=== PATIENT | female | born 1950 | race Caucasian/White ===

== ENCOUNTER → 2016-07-05 | Outpatient (CLI) | payer MEDICARE, OTHER | LOC: SP 10:43 | PROVIDERS: ATTEND Physician Assistant | DX: R42 Dizziness and giddiness (principal) | CPT/HCPCS: 93880 ==

== ENCOUNTER 2016-10-07 16:02 | Emergency (ER) | payer MEDICARE, OTHER ==
--- NOTE | 2016-10-07 16:54 | ER Document Report ---
ED Neck/Back Problem - General Chief Complaint: Hip Pain Stated Complaint: HIP PAIN Time seen by provider: 16:49 Mode of Arrival: Medic Information source: Patient Notes: 66-year-old female presents to ED for left "hip "pain. There is no hip pain but she does have tenderness to the left sacral area. Pain with range of motion of the left leg to the left sacral. She has a history of long chronic pain that she gets hydrocortisone from her doctor in [place]. She is also scheduled to get a cortisone shot on Tuesday for her chronic pain. TRAVEL OUTSIDE OF THE [place] IN LAST 30 DAYS: No - HPI Patient complains to provider of: Lower back Onset: Other - 2 days Where: Home Onset: Chronic Timing: Still present Quality of pain: Achy, Sharp Severity: Severe Pain Level: 5 Context: Other - No new injury Recent injury: No Associated symptoms: Radiation to leg, Lower back pain. denies: Constipation, Incontinence, Motor loss, Numbness/tingling, Sensory loss, Unable to urinate Exacerbated by: Movement of trunk, Sitting position Relieved by: Nothing Similar symptoms previously: Yes Recently seen / treated by doctor: Yes - Related Data Allergies/Adverse Reactions: estrogens, conjugated [From Premarin] Allergy (Severe, Verified 08/12/15 10:45) hives, throat closing gemfibrozil [From Lopid] Allergy (Severe, Verified 08/12/15 10:45) HIVES THROAT CLOSES iodine [Iodine] Allergy (Severe, Verified 08/12/15 10:45) HIVES, THROAT CLOSES naproxen sodium [From Anaprox] Allergy (Severe, Verified 08/12/15 10:45) HIVES, THROAT CLOSES niacin [From Niaspan] Allergy (Severe, Verified 08/12/15 10:45) HIVES, THROAT CLOSES povidone-iodine [From Betadine] Allergy (Severe, Verified 08/12/15 10:45) HIVES THROAT CLOSES red dye [Red Dye] Allergy (Severe, Verified 08/12/15 10:45) HIVES, THROAT CLOSES rosuvastatin calcium [From Crestor] Allergy (Severe, Verified 08/12/15 10:45) HIVES, THROAT CLOSES Soap [From Betadine] Allergy (Severe, Verified 08/12/15 10:45) HIVES THROAT CLOSES Sulfa (Sulfonamide Antibiotics) Allergy (Severe, Verified 08/12/15 10:45) HIVES THROAT CLOSES neutro pad Allergy (Uncoded 08/12/15 10:45) rash Past Medical History - General Information source: Patient - Social History Smoking Status: Current Every Day Smoker Cigarette use (# per day): Yes - pack per day Chew tobacco use (# tins/day): No Smoking Education Provided: Yes - less than 1 Frequency of alcohol use: None Drug Abuse: None Lives with: Family Family History: Arthritis, CAD, DM, Hyperlipidemia, Hypertension, Malignancy, Thyroid Disfunction Patient has suicidal ideation: No Patient has homicidal ideation: No - Past Medical History Cardiac Medical History: Reports: Hx Hypercholesterolemia, Hx Hypertension - on meds Pulmonary Medical History: Reports: Hx Bronchitis, Hx COPD EENT Medical History: Reports: None Neurological Medical History: Reports: None Endocrine Medical History: Reports: None Renal/ Medical History: Reports: None Malignancy Medical History: Reports: None GI Medical History: Reports: Hx Hiatal Hernia - 2 repairs, 2012 Musculoskeltal Medical History: Reports Hx Arthritis, Reports Hx Musculoskeletal Deformity, Reports Hx Musculoskeletal Trauma Skin Medical History: Reports None Psychiatric Medical History: Reports: None Traumatic Medical History: Reports: None Infectious Medical History: Reports: None Past Surgical History: Reports: Hx Abdominal Surgery - hiatal hernia, abdominal hernia, rectorectal cyst, Hx Appendectomy, Hx Cholecystectomy, Hx Gynecologic Surgery - bladder tact, Hx Hysterectomy, Hx Neurologic Surgery - Previous back surgery cauterization of the nerves in the back, Hx Orthopedic Surgery - left rotator cuff patient states she had her "tailbone" removed, Hx Tonsillectomy - & adenoids, Hx Tubal Ligation, Hx Urinary Tract Surgery, Hx Vascular Surgery - Vein stripping bilateral, Other - Cataract surgery - Immunizations Hx Diphtheria, Pertussis, Tetanus Vaccination: Yes - 2013 Hx Pneumococcal Vaccination: 06/06/13 Review of Systems - Review of Systems Constitutional: No symptoms reported EENT: No symptoms reported Cardiovascular: No symptoms reported Respiratory: No symptoms reported Gastrointestinal: No symptoms reported Genitourinary: No symptoms reported Female Genitourinary: No symptoms reported Musculoskeletal: Back pain, Muscle pain Skin: No symptoms reported Hematologic/Lymphatic: No symptoms reported Neurological/Psychological: No symptoms reported -: Yes All other systems reviewed and negative Physical Exam - Vital signs Vitals: Temp Pulse Resp BP Pulse Ox 97.6 F 82 18 119/61 95 10/07/16 16:22 10/07/16 16:22 10/07/16 16:22 10/07/16 16:22 10/07/16 16:22 Interpretation: Normal - General General appearance: Appears well, Alert - HEENT Head: Normocephalic, Atraumatic Eyes: Normal Pupils: PERRL - Respiratory Respiratory status: No respiratory distress Chest status: Nontender Breath sounds: Normal Chest palpation: Normal - Cardiovascular Rhythm: Regular Heart sounds: Normal auscultation Murmur: No - Abdominal Inspection: Normal Distension: No distension Bowel sounds: Normal Tenderness: Nontender Organomegaly: No organomegaly - Back Back: Normal, Tender - Paraspinous muscles, Scars - Previous back surgery. No: Deformity/step-off, CVA tenderness, Vertebra tenderness, Scoliosis, Wounds - Extremities General upper extremity: Normal inspection, Nontender, Normal color, Normal ROM , Normal temperature General lower extremity: Normal inspection, Nontender, Normal color, Normal ROM , Normal temperature, Normal weight bearing. No: Kenia's sign - Neurological Neuro grossly intact: Yes Cognition: Normal Orientation: AAOx4 [place] Coma Scale Eye Opening: Spontaneous [place] Coma Scale Verbal: Oriented [place] Coma Scale Motor: Obeys Commands [place] Coma Scale Total: 15 Speech: Normal Motor strength normal: LUE, RUE, LLE, RLE Sensory: Normal - Psychological Associated symptoms: Normal affect, Normal mood - Skin Skin Temperature: Warm Skin Moisture: Dry Skin Color: Normal Course - Vital Signs Vital signs: Temp Pulse Resp BP Pulse Ox 98.1 F 85 20 119/68 96 10/07/16 19:00 10/07/16 19:00 10/07/16 19:00 10/07/16 19:00 10/07/16 19:00 - Diagnostic Test Radiology reviewed: Image reviewed, Reports reviewed Discharge - Discharge Clinical Impression: Chronic low back pain with left-sided sciatica Qualifiers: Back pain laterality: bilateral Qualified Code(s): M54.42 - Lumbago with sciatica, left side Condition: Stable Disposition: HOME, SELF-CARE Additional Instructions: Chronic Back Pain Chronic back pain (pain persisting longer than three months) is a common problem. A medical evaluation can look for herniated disc, arthritis, osteoporosis, tumors, and infections. But at least half the time, there's no obvious treatable cause. Anxiety and depression tend to worsen back pain. Ibuprofen or other anti-inflammatory medicine can help. A heating pad, used for 15-20 minutes at a time, can ease pain. For this type of back pain, narcotic medicines should be avoided. Muscle relaxers are rarely helpful unless you're having spasms. Activity is important. Find an aerobic exercise program that your back can tolerate. Too much rest makes back pain worse. Specific back exercises are usually prescribed to strengthen the back and abdominal muscles. Often, a physical therapist can help. Avoid heavy lifting, working while bent over, or standing with both knees straight. Most back pain patients do better with a firm mattress. If new symptoms of a "herniated disc" (radiation of pain, numbness, or tingling down the back of the leg or weakness in the leg) occur, you should be re-examined. Chronic Pain Control Stress, inactivity, and depression make pain more severe regardless of the cause of the pain. Stress and poor physical condition can cause pain such as headaches and backache. Relaxation: Rest in a quiet place with your eyes closed for 20 minutes twice daily. Concentrate on a pleasant image, or simply "feel" your breathing. Clear your mind. Stress management: Deal with your "stressors." Either take action, or eliminate the stressor from your life. Don't let things hang over you. Accept those things you can't change. Nutrition: Eat small, balanced meals -- don't skip, don't overeat. Meals should be high-carbohydrate, low-sugar, low-fat. Exercise: Exercise helps painful conditions and eases stress. Get 30 minutes of moderate exercise, five days a week. Do an activity that does not flare your pain. Precautions: Pain which continues to disrupt daily activities, or which changes in nature, requires a medical evaluation. Pain Clinic referral is available. We do not manage chronic pain in the Emergency Department. We will try to appropriately help you through an acute flare of your chronic painful condition , but for on-going chronic pain that does not improve, you will need to see your private doctor or automobile painter. We do not provide repeated medication management of chronic painful conditions. If you wish, we can provide the name of local pain management physicians. ORAL NARCOTIC MEDICATION: You have been given a [place] for pain control. This medication is a narcotic. It's best taken with food, as nausea can result if taken on an empty stomach. Don't operate machinery or drive within six hours of taking this medication. Do not combine this medicine with alcohol, or with any medication which can cause sedation (such as cold tablets or sleeping pills) unless you get permission from the physician. Narcotics tend to cause constipation. If possible, drink plenty of fluids and eat a diet high in fiber and fruits. Please be aware that prescription narcotics also have the potential for abuse. People become addicted to these medications because of the general sense of wellbeing that they induce. This feeling along with a significant reduction in tension, anxiety, and aggression provides a stimulating seductive quality to these drugs. Once your pain is under control, we encourage you to discard your unused narcotics. MUSCLE RELAXERS: You were given a Flexeril while in the emergency room for muscle spasms with your back pain. As you on chronic pain management I cannot send her home with a prescription. Muscle relaxing medications are usually prescribed for acute muscle spasm or injury to the neck and back. They are often combined with antiinflammatory pain medication for increased relief. You may stop the muscle relaxer when the pain and stiffness have improved. Start the medication again if spasms recur. Muscle relaxers may cause drowsiness, especially with the first dose. Do not operate machinery or drive while under the effects of the medication. Most muscle relaxers last up to 24 hours. Do not combine the medication with alcohol. ICE PACKS: Apply ice packs frequently against the painful area. Many different schedules are recommended, such as "20 minutes on, 20 minutes off" or "one hour ice, two hours rest." If you need to work, you may need to go longer between ice treatments. You should plan to have the area ice packed AT LEAST one fourth of the time. The ice should be applied over the wrap, tape, or splint, or over a layer of cloth -- not directly against the skin. Some ice bags have a built-in cloth and can be put directly on the skin. WARM PACKS: After approximately two days, apply gentle heat (such as a heating pad or hot water bottle) for about 20 to 30 minutes about every two hours -- at least four times daily. Warmth and elevation will help you make a more rapid recovery , and will ease the pain considerably. Do not use HOT heat, and never apply heat for longer than 30 minutes. The continuous heat can invisibly damage skin and muscles -- even when no burn is seen on the surface. Damaged muscles can make you MORE sore. FOLLOW-UP CARE: If you have been referred to a physician for follow-up care, call the physician s office for an appointment as you were instructed or within the next two days. If you experience worsening or a significant change in your symptoms, notify the physician immediately or return to the Emergency Department at any time for re-evaluation. Please call your pain management physician and let them know that your pain has increased you have not had a new injury and try to schedule a follow-up appointment. Forms: Smoking Cessation Education Referrals: RAMON MCCAIN PA-C [Primary Care Provider] - Follow up as needed
[2016-10-07] MEDS ORDERED: HYDROCODONE/ACETAMINOPHEN 5-325 MG TABLET PO ONE (18:09)
[2016-10-07] MEDS ORDERED: CYCLOBENZAPRINE HCL 10 MG TABLET PO ONE (18:09)
[2016-10-07 19:03] VITALS: BP 119/68
== END 2016-10-07 19:06 | disposition home or self-care (01) ==
LOC: ER 16:02
DX: M54.42 Lumbago with sciatica, left side (principal); G89.29 Other chronic pain; M25.552 Pain in left hip; F17.210 Nicotine dependence, cigarettes, uncomplicated; E78.00 Pure hypercholesterolemia, unspecified; I10 Essential (primary) hypertension; J44.9 Chronic obstructive pulmonary disease, unspecified; Z88.2 Allergy status to sulfonamides; Z88.9 Allergy status to unspecified drugs, medicaments and biological substances; Z90.49 Acquired absence of other specified parts of digestive tract
CPT/HCPCS: 99283; 72110; A9270 ×2

== ENCOUNTER → 2016-11-15 | Outpatient (CLI) | payer MEDICARE, OTHER ==
--- NOTE | 2016-11-15 19:15 | XCELERA REPORT ---
[address] [address] Lower Extremity Venous Evaluation Name: RUSTY IRVIN Age: 66 yrs Gender: Female : 1950 Patient Status: Outpatient Patient Location: Study Date: 11/15/2016 01:01 PM Procedure: Color flow and duplex imaging bilaterally of the veins of the lower extremities as well as the Common Femoral veins. Reason For Study: EDEMA Ordering Physician: RAMON MCCAIN PA-C Performed By: Lynnette Edge Right Sided Venous Evaluation Normal vessel filling wall to wall, compression and augmentation as well as Colour flow down to the infrageniculate veins. Left Sided Venous Evaluation Normal vessel filling wall to wall, compression and augmentation as well as Colour flow down to the infrageniculate veins. Interpretation Summary No duplex evidence of DVT or obstruction in the bilateral lower extremities. : RAMON MCCAIN PA-C > Obi Darden
== END ==
LOC: SP 12:51
PROVIDERS: ATTEND Physician Assistant
DX: R60.0 Localized edema (principal)
CPT/HCPCS: 93970

== ENCOUNTER 2016-11-25 08:20 | Day surgery (SDC) | payer MEDICARE, OTHER ==
[2016-11-25] MEDS ORDERED: ONDANSETRON HCL INJ/PF 4 MG/2 ML SDV ONE (09:52)
[2016-11-25] MEDS ORDERED: NALOXONE HCL INJ/PF 0.4 MG/1 ML SDV ONE ×2 (09:52)
[2016-11-25] MEDS ORDERED: FENTANYL CITRATE INJ/PF 100 MCG/2 ML AMPUL ONE (09:54)
[2016-11-25] MEDS ORDERED: FLUMAZENIL INJ 0.5 MG/5 ML VIAL IV ONE (09:54)
[2016-11-25] MEDS ORDERED: EPINEPHRINE INJ 1 MG/10 ML DISP.SYRIN ONE (09:55)
[2016-11-25] MEDS ORDERED: GLUCAGON,HUMAN RECOMB 1 MG INJ ONE (09:55)
[2016-11-25] MEDS: MIDAZOLAM 2 MG/2 ML INJ ONE ×2 (10:20→10:24)
[2016-11-25] MEDS: FENTANYL CITRATE INJ/PF 100 MCG/2 ML AMPUL ONE ×2 (10:22→10:27)
--- NOTE | 2016-11-25 10:47 | Operative Report ---
Operative Report DATE OF SURGERY: 11/25/16 PREOPERATIVE DIAGNOSIS: 1. History of GERD. 2. History of [place] esophagus. 3. History of Cheikh fundoplication and revision POSTOPERATIVE DIAGNOSIS: 1. Distal esophagitis. 2. Diffuse gastritis OPERATION: 1. Esophagogastroduodenoscopy. 2. Distal esophageal biopsy 2. 3. Antral biopsy SURGEON: ESTHER SAHU ANESTHESIA: Moderate Sedation TISSUE REMOVED OR ALTERED: Physical biopsy COMPLICATIONS: none ESTIMATED BLOOD LOSS: scant INTRAOPERATIVE FINDINGS: see below PROCEDURE: Taken to the endoscopy suite where IV sedation was induced. She was placed in the left lateral decubitus position. Surgical timeout was conducted. Appropriate level sedation was achieved The flexible adult upper endoscope was advanced through the oropharynx down the esophagus to the stomach into the duodenum. This was well tolerated by the patient. The duodenum was essentially normal. Scope was brought back to the pylorus which was normal without evidence of peptic ulcer disease. The stomach was of normal caliber. There was no evidence of retained gastric contents. There was diffuse moderate severe gastritis without ulceration. Biopsies of the distal antrum was obtained. The scope was retroflexed stomach and a good look at the Cheikh fundoplication was appreciated. The wrap appeared to be intact and was photographed. Scope was brought back to the GE junction. The was approximately 37 cm from the incisor. There was evidence of mucosal irregularity on the esophageal side and 2 biopsies were obtained photographs were obtained and submitted. There was no evidence of stricture or bleeding or erosions. The rest of the esophagus was unremarkable. The scope was withdrawn to the patient's oropharynx. She tolerated procedure well
--- NOTE | 2016-11-25 10:49 | PDOC DISCHARGE SUMMARY ---
Discharge Summary (SDC) - Discharge Final Diagnosis: 1. Distal esophagitis 2. Diffuse gastris 3. S/P Cheikh Fundoplication Date of Surgery: 11/25/16 Discharge Date: 11/25/16 Condition: Good Treatment or Instructions: [facility] [address] [address] POST ENDOSCOPY DISCHARGE INSTRUCTIONS 1. Diet: Start clear liquids that a regular diet as tolerated. 2. Resume all preoperative medications. All oral anticoagulants and aspirins can be resumed 24 hours after procedure. 3. If a polypectomy was performed some bleeding per rectum may occur. This should stop within 3 days. If not, please contact the office. 4. If you had a colonoscopy you may experience some bloating and delayed return of normal bowel function for several days, your regular bowel movement pattern should resume within a week. 5. Please contact [facility] at to make an appointment with Dr. Ford for 1 to 3 weeks following procedure. 6. If you have any questions or concerns regarding your care,treatment plan or follow up, please contact our office. Discharge Diet: As Tolerated Discharge Activity: Activity As Tolerated Home Care Assistance: None Needed Report the Following to Your Physician Immediately: Shortness of Breath, Increase in Pain, Fever over 101 Degrees
[2016-11-25 11:59] VITALS: BP 117/53
== END 2016-11-25 12:02 | disposition home or self-care (01) ==
LOC: END 08:20
PROVIDERS: ATTEND Surgery
PROC: 0DB38ZX Excision of Lower Esophagus, Via Natural or Artificial Opening Endoscopic, Diagnostic (ICD-10-PCS; 2016-11-25)
PROC: 0DB68ZX Excision of Stomach, Via Natural or Artificial Opening Endoscopic, Diagnostic (ICD-10-PCS; principal; 2016-11-25 09:00)
DX: K21.0 Gastro-esophageal reflux disease with esophagitis (principal); K29.70 Gastritis, unspecified, without bleeding; Z87.19 Personal history of other diseases of the digestive system; E78.00 Pure hypercholesterolemia, unspecified; I10 Essential (primary) hypertension; F17.210 Nicotine dependence, cigarettes, uncomplicated; F41.9 Anxiety disorder, unspecified; Z79.899 Other long term (current) drug therapy; Z88.2 Allergy status to sulfonamides; Z88.6 Allergy status to analgesic agent; Z88.8 Allergy status to other drugs, medicaments and biological substances; Z87.440 Personal history of urinary (tract) infections
CPT/HCPCS: 43239; 88342 ×2; 88305 ×2; 88313 ×2; J2250; J3010; J0171; J1610; J2310; J2405; J3490

== ENCOUNTER 2018-02-15 13:52 | Emergency (ER) | payer MEDICARE ==
[2018-02-15] MEDS ORDERED: MORPHINE SULFATE 10 MG/ML INJ IV ONE (15:02)
[2018-02-15] MEDS ORDERED: ONDANSETRON HCL INJ/PF 4 MG/2 ML SDV IV ONE (15:02)
--- NOTE | 2018-02-15 15:21 | ER Document Report ---
ED Medical Screen (RME) - General Chief Complaint: Leg Pain Stated Complaint: LEG PAIN Time Seen by Provider: 02/15/18 14:44 Mode of Arrival: Wheelchair Information source: Patient Notes: Patient is complaining of right lower extremity pain of sudden onset. She denies any injury or fall. I have greeted and performed a rapid initial assessment of this patient. A comprehensive ED assessment and evaluation of the patient, analysis of test results and completion of the medical decision making process will be conducted by additional ED providers. TRAVEL OUTSIDE OF THE [place] IN LAST 30 DAYS: No - Related Data Allergies/Adverse Reactions: estrogens, conjugated [From Premarin] Allergy (Severe, Verified 02/15/18 14:02) hives, throat closing gemfibrozil [From Lopid] Allergy (Severe, Verified 02/15/18 14:02) HIVES THROAT CLOSES iodine [Iodine] Allergy (Severe, Verified 02/15/18 14:02) HIVES, THROAT CLOSES naproxen sodium [From Anaprox] Allergy (Severe, Verified 02/15/18 14:02) HIVES, THROAT CLOSES niacin [From Niaspan] Allergy (Severe, Verified 02/15/18 14:02) HIVES, THROAT CLOSES povidone-iodine [From Betadine] Allergy (Severe, Verified 02/15/18 14:02) HIVES THROAT CLOSES red dye [Red Dye] Allergy (Severe, Verified 02/15/18 14:02) HIVES, THROAT CLOSES rosuvastatin calcium [From Crestor] Allergy (Severe, Verified 02/15/18 14:02) HIVES, THROAT CLOSES Soap [From Betadine] Allergy (Severe, Verified 02/15/18 14:02) HIVES THROAT CLOSES Sulfa (Sulfonamide Antibiotics) Allergy (Severe, Verified 02/15/18 14:02) HIVES THROAT CLOSES neutro pad Allergy (Uncoded 02/15/18 14:02) rash Past Medical History - Past Medical History Cardiac Medical History: Reports: Hx Hypercholesterolemia, Hx Hypertension Denies: Hx Coronary Artery Disease, Hx Heart Attack Pulmonary Medical History: Reports: Hx COPD - TAKES BREATHING TREATMENTS Denies: Hx Asthma, Hx Bronchitis, Hx Pneumonia Neurological Medical History: Denies: Hx Cerebrovascular Accident, Hx Seizures Renal/ Medical History: Denies: Hx Peritoneal Dialysis GI Medical History: Reports: Hx Hiatal Hernia - 2 repairs, 2012 Musculoskeltal Medical History: Reports Hx Arthritis, Reports Hx Musculoskeletal Deformity, Reports Hx Musculoskeletal Trauma Past Surgical History: Reports: Hx Abdominal Surgery, Hx Appendectomy, Hx Cholecystectomy, Hx Gynecologic Surgery - bladder tact, Hx Hysterectomy, Hx Neurologic Surgery - Previous back surgery cauterization of the nerves in the back, Hx Orthopedic Surgery - ltkr, Lshoulder, back, Hx Rectal Surgery - cyst removal, Hx Tonsillectomy, Hx Tubal Ligation, Hx Urinary Tract Surgery, Hx Vascular Surgery - Vein stripping bilateral, Other - Cataract surgery - Immunizations Hx Diphtheria, Pertussis, Tetanus Vaccination: Yes - 2013 Physical Exam - Vital signs Vitals: Temp Pulse Resp BP Pulse Ox 97.4 F 99 18 133/73 H 94 02/15/18 14:18 02/15/18 14:18 02/15/18 14:18 02/15/18 14:18 02/15/18 14:18 Course - Vital Signs Vital signs: Temp Pulse Resp BP Pulse Ox 97.4 F 99 18 133/73 H 94 02/15/18 14:18 02/15/18 14:18 02/15/18 14:18 02/15/18 14:18 02/15/18 14:18 Doctor's Discharge - Discharge Referrals: RAMON MCCAIN PA-C [Primary Care Provider] - Follow up as needed
--- NOTE | 2018-02-15 16:09 | RADIOLOGY REPORT (SQ) ---
EXAM DESCRIPTION: VENOUS UNILATERAL LOWER COMPLETED DATE/TIME: 02/15/2018 4:02 pm REASON FOR STUDY: Right Leg pain COMPARISON: None. TECHNIQUE: Dynamic and static mckeon scale and color images acquired of the right leg venous system. S elected spectral images acquired with additional compression and augmentation maneuvers. The contrala teral common femoral vein and saphenofemoral junction were also imaged. Images stored on PACS. LIMITATIONS: None. FINDINGS: COMMON FEMORAL: Normal phasicity, compression and augmentation. No visualized echogenic ma terial on mckeon scale. No defects on color images. FEMORAL: Normal compression and augmentation. No visualized echogenic material on mckeon scale. No defe cts on color images. POPLITEAL: Normal compression, augmentation. No visualized echogenic material on mckeon scale. No defec ts on color images. CALF VESSELS: Normal compression, augmentation. No visualized echogenic material on mckeon scale. No de fects on color images. GSV and SSV: Normal compression, augmentation. No visualized echogenic material on mckeon scale. No def ects on color images. ANY DEEP VENOUS INSUFFICIENCY: Not evaluated. ANY EVIDENCE OF POPLITEAL CYST: No. OTHER: No other significant finding. CONTRALATERAL COMMON FEMORAL VEIN AND SAPHENOFEMORAL JUNCTION: Normal phasicity, compression and augmentation. No visualized echogenic material on mckeon scale. No de fects on color images. IMPRESSION: NO EVIDENCE DVT OR SVT IN THE RIGHT LEG. TECHNICAL DOCUMENTATION: JOB ID: [id number] [employer]- All Rights Reserved Reading location - IP/workstation name: [email or web address]
[2018-02-15] MEDS ORDERED: LIDOCAINE 5% (700 MG) TRANSDERMAL ADH..PATCH TP ONE (16:46)
--- NOTE | 2018-02-15 16:54 | ER Document Report ---
HPI - HPI Pain Level: 4 Notes: Patient is a 67-year-old female with a rate of hypertension, DKA on the right side, femur fracture on the right, tobacco abuse who presents to the ED complaining of right anterior tibial pain that began about 4 days ago with no known precipitating event or injury. Patient states that she is still able to ambulate. Patient states that the soreness has been increasing at times to that right leg. Patient states that she has been wearing her compression stockings without any changes noted in her amount of swelling. She has not noticed any redness or bruising. She is eating and drinking without difficulties. She is urinating normally and having normal bowel movements. + smoker. Denies prolonged immobilization/travel, recent surgery/trauma, CA hx, hormone use, prev dvt/pe. Denies any PARRISH, fever, neck stiffness, URI, CP, syncope, HERNANDEZ, cough, wheeze, SOB, abd pain, n/v/d, dysuria, hematuria, back pain , loss of control of b/b, urinary retention, saddle anesthesia, paralysis/ weakness, or rash. - ROS Systems Reviewed and Negative: Yes All other systems reviewed and negative - REPRODUCTIVE Reproductive: DENIES: : - DERM Skin Color: Normal, [place] Past Medical History - General Information source: Patient - Social History Smoking Status: Current Every Day Smoker Family History: Arthritis, CAD, DM, Hyperlipidemia, Hypertension, Malignancy, Thyroid Disfunction Patient has suicidal ideation: No Patient has homicidal ideation: No - Past Medical History Cardiac Medical History: Reports: Hx Hypercholesterolemia, Hx Hypertension Denies: Hx Coronary Artery Disease, Hx Heart Attack Pulmonary Medical History: Reports: Hx COPD - TAKES BREATHING TREATMENTS Denies: Hx Asthma, Hx Bronchitis, Hx Pneumonia Neurological Medical History: Denies: Hx Cerebrovascular Accident, Hx Seizures Renal/ Medical History: Denies: Hx Peritoneal Dialysis GI Medical History: Reports: Hx Hiatal Hernia - 2 repairs, 2012 Musculoskeletal Medical History: Reports Hx Arthritis, Reports Hx Musculoskeletal Deformity, Reports Hx Musculoskeletal Trauma Past Surgical History: Reports: Hx Abdominal Surgery, Hx Appendectomy, Hx Cholecystectomy, Hx Gynecologic Surgery - bladder tact, Hx Hysterectomy, Hx Neurologic Surgery - Previous back surgery cauterization of the nerves in the back, Hx Orthopedic Surgery - ltkr, Lshoulder, back, Hx Rectal Surgery - cyst removal, Hx Tonsillectomy, Hx Tubal Ligation, Hx Urinary Tract Surgery, Hx Vascular Surgery - Vein stripping bilateral, Other - Cataract surgery - Immunizations Hx Diphtheria, Pertussis, Tetanus Vaccination: Yes - 2013 Hx Pneumococcal Vaccination: 06/06/13 Vertical Provider Document - CONSTITUTIONAL Agree With Documented VS: Yes Notes: PHYSICAL EXAMINATION: GENERAL: Well-appearing, well-nourished and in no acute distress. LUNGS: Breath sounds clear to auscultation bilaterally and equal. No wheezes rales or rhonchi. HEART: Regular rate and rhythm without murmurs, rubs, gallops. Musculoskeletal: Rt leg/knee: No obvious warmth, swelling, ecchymosis, effusion , or deformity. FROM to passive/active and flexion >90 w/o difficulty or tenderness. Strength 5+/5. N/V intact distal. Patellar grind negative. No calf tenderness. + point tenderness to the anterior tibia near the prox 1/3 area. Compartments are soft. no foot drop. Extremities: No cyanosis, clubbing, or edema b/l. Peripheral pulses 2+. Capillary refill less than 3 seconds. [place] neg b/l. NEUROLOGICAL: Normal speech, limping gait. Normal sensory, motor exams PSYCH: Normal mood, normal affect. SKIN: Warm, Dry, normal turgor, no rashes or lesions noted. - INFECTION CONTROL TRAVEL OUTSIDE OF THE [place] IN LAST 30 DAYS: No Course - Re-evaluation Re-evalutation: 02/15/18 17:36 Patient is an afebrile, well-hydrated, 67-year-old female who presents to the ED with anterior tibial leg pain, unspecified. Vitals are acceptable without any significant tachycardia, tachypnea, or hypoxia. PE is otherwise unremarkable for any neurovascular compromise, obvious tendon/ligament rupture, obvious fracture/dislocation, septic joint, compartment syndrome, DVT. Venous Doppler was unremarkable for any acute pathology including x-ray. Patient is able to weight-bear and ambulate even though she has a limp. No further labs or imaging warranted at this time based on H&P. Patient is nontoxic-appearing and is tolerating p.o. without any difficulties. I will send her home with a prescription for Lidoderm patch and Voltaren gel. Recheck with your PCM in 3-5 days. Consider consult orthopedics. Return to the ED with any worsening/ concerning symptoms otherwise as reviewed in discharge. Patient is in agreement. Patient states that she can take ibuprofen, Motrin, and Aleve without any allergic symptoms. - Vital Signs Vital signs: Temp Pulse Resp BP Pulse Ox 97.4 F 99 18 133/73 H 94 02/15/18 14:18 02/15/18 14:18 02/15/18 14:18 02/15/18 14:18 02/15/18 14:18 Discharge - Discharge Clinical Impression: Right leg pain Condition: Stable Disposition: HOME, SELF-CARE Instructions: Leg Pain Nonspecific ([facility]) Additional Instructions: Rest, Ice, Compression, Elevation Tylenol/ibuprofen as needed Light stretches daily Strength exercises as able Moist heat and massage may help F/u with your PCP in 3-5 days for a recheck Consider consult(s) with Orthopedics/physical therapy for ongoing/worsening symptoms Return to the ED with any worsening symptoms and/or development of fever, headache, chest pain, palpitations, syncope, shortness of breath, trouble breathing, abdominal pain, n/v/d, muscle weakness/paralysis, numbness/tingling, swelling, redness, or other worsening symptoms that are concerning to you. Prescriptions: Diclofenac Sodium [Voltaren] 4 gm TP QID PRN #100 gel..gm. PRN Reason: Lidocaine [Lidoderm] 1 each TP DAILY #10 adh..patch Forms: Smoking Cessation Education, Elevated Blood Pressure Referrals: [facility] [Provider Group] - Follow up as needed RAMON MCCAIN PA-C [Primary Care Provider] - Follow up in 1 week
[2018-02-15] MEDS ORDERED: ACETAMINOPHEN 325 MG TABLET PO ONE (16:55)
--- NOTE | 2018-02-15 17:25 | RADIOLOGY REPORT (SQ) ---
EXAM DESCRIPTION: TIBIA FIBULA RIGHT COMPLETED DATE/TIME: 02/15/2018 4:58 pm REASON FOR STUDY: rt anterior tibial pain COMPARISON: None. NUMBER OF VIEWS: Two views. TECHNIQUE: Two radiographic images acquired of the right tibia and fibula to include the knee and an kle in at least one projection. LIMITATIONS: None. FINDINGS: MINERALIZATION: Normal. BONES: No acute fracture or dislocation. No worrisome bone lesions. SOFT TISSUES: No obvious swelling or foreign body. OTHER: Patient is status post total knee replacement IMPRESSION: No acute fracture dislocation. Patient is status post total knee replacement. Other fi ndings as noted above TECHNICAL DOCUMENTATION: JOB ID: [id number] [employer]- All Rights Reserved Reading location - IP/workstation name: [email or web address]
[2018-02-15 18:05] VITALS: BP 138/76
== END 2018-02-15 18:05 | disposition home or self-care (01) ==
LOC: ER 13:52
DX: M79.604 Pain in right leg (principal); F17.210 Nicotine dependence, cigarettes, uncomplicated; I10 Essential (primary) hypertension; E11.9 Type 2 diabetes mellitus without complications
CPT/HCPCS: 96376; 99285; 96361; 96375; 96365; 93971; 73590; A9270

== ENCOUNTER → 2018-08-02 | Outpatient (CLI) | payer MEDICARE, OTHER ==
--- NOTE | 2018-08-02 12:36 | XCELERA REPORT ---
[address] [place] [facility] [address] Lower Extremity Venous Evaluation Procedure: Color flow and duplex imaging of the veins of the left lower extremity as well as the right Common Femoral vein. Right Sided Venous Evaluation The right common femoral vein is fully compressible. Spontaneous and phasic flow is present in the right common femoral vein. Left Sided Venous Evaluation Normal vessel filling wall to wall, compression and augmentation as well as Colour flow down to the infrageniculate veins. Interpretation Summary No duplex evidence of DVT or obstruction in the left lower extremity nor in the right Common Femoral vein. Name: RUSTY IRVIN Age: 67 yrs Gender: Female : 1950 Patient Status: Outpatient Patient Location: Study Date: 08/02/2018 11:33 AM Reason For Study: LLE PAIN Ordering Physician: RAMON MCCAIN Performed By: Beka Santacruz : RAMON MCCAIN [place]
== END ==
LOC: SP 11:23
PROVIDERS: ATTEND Physician Assistant
DX: M79.662 Pain in left lower leg (principal)
CPT/HCPCS: 93971

== ENCOUNTER → 2018-08-29 | Outpatient (CLI) | payer MEDICARE, OTHER ==
[2018-08-29 13:42] LABS: ABSOLUTE BASOPHILS # (AUTO) 0.1 10^3/uL (0.0-0.2); ABSOLUTE EOSINOPHILS # (AUTO) 0.3 10^3/uL (0.0-0.6); ABSOLUTE LYMPHOCYTES (AUTO) 2.4 10^3/uL (0.5-4.7); ABSOLUTE MONOCYTES (AUTO) 0.8 10^3/uL (0.1-1.4); ABSOLUTE NEUT (AUTO) 9.1 10^3/uL (1.7-8.2); BASOPHILS % (AUTO) 0.5 % (0-2); EOSINOPHILS % (AUTO) 2.1 % (0-6); HEMATOCRIT 37.5 % (36.0-47.0); HEMOGLOBIN 12.6 g/dL (12.0-15.5); LYMPHOCYTES % (AUTO) 19.3 % (13-45); MEAN CORPUSCULAR HEMOGLOBIN 26.2 pg (27.0-33.4); MEAN CORPUSCULAR HGB CONC 33.5 g/dL (32.0-36.0); MEAN CORPUSCULAR VOLUME 78 fl (80-97); MONOCYTES % (AUTO) 6.3 % (3-13); PLATELET COUNT 243 10^3/uL (150-450); RED CELL DISTRIBUTION WIDTH 17.9 % (11.5-14.0); SEGMENTED NEUTROPHILS % (AUTO) 71.8 % (42-78); TOTAL CELLS COUNTED % (AUTO) 100 %; WHITE BLOOD COUNT 12.6 10^3/uL (4.0-10.5)
[2018-08-29 14:21] LABS: ERYTHROCYTE SEDIMENTATION RATE 30 mm/hr (0-30)
== END ==
LOC: OD 13:02
PROVIDERS: ATTEND Physician Assistant
DX: M25.562 Pain in left knee (principal)
CPT/HCPCS: 36415; 85025; 85652; 86140

== ENCOUNTER 2019-03-08 07:17 | Day surgery (SDC) | payer MEDICARE, OTHER ==
[~2019-03-08 07:17] MED LIST: DIPHENHYDRAMINE HCL 50 MG/ML VIAL ONE; EPINEPHRINE INJ 1 MG/10 ML DISP.SYRIN ONE; FLUMAZENIL INJ 0.5 MG/5 ML VIAL ONE; GLUCAGON,HUMAN RECOMB 1 MG INJ ONE; NALOXONE HCL INJ/PF 0.4 MG/1 ML SDV ONE; ONDANSETRON HCL INJ/PF 4 MG/2 ML SDV ONE
[2019-03-08] MEDS: MIDAZOLAM 2 MG/2 ML INJ ONE ×3 (07:48→08:11)
[2019-03-08] MEDS: FENTANYL CITRATE INJ/PF 100 MCG/2 ML AMPUL ONE ×3 (07:49→08:07)
--- NOTE | 2019-03-08 08:49 | Discharge Summary ---
Discharge Summary (SDC) - Discharge Final Diagnosis: 1. Status post Cheikh fundoplication 2. Distal esophagitis 3. Diffuse, moderate to severe gastritis 4. Scattered diverticular disease 5. Multiple mid and upper rectal polyps Date of Surgery: 03/08/19 Discharge Date: 03/08/19 Condition: Good Treatment or Instructions: [address] [address] POST ENDOSCOPY DISCHARGE INSTRUCTIONS 1. Diet: Start clear liquids that a regular diet as tolerated. 2. Resume all preoperative medications. All oral anticoagulants and aspirins can be resumed 24 hours after procedure. 3. If a polypectomy was performed some bleeding per rectum may occur. This should stop within 3 days. If not, please contact the office. 4. If you had a colonoscopy you may experience some bloating and delayed return of normal bowel function for several days, your regular bowel movement pattern should resume within a week. 5. Please contact [facility] at to make an appointment with Dr. Ford for 1 to 3 weeks following procedure. 6. If you have any questions or concerns regarding your care,treatment plan or follow up, please contact our office. 7. Per clinical guidelines we recommend you undergo a repeat colonoscopy in 5 y ears. Referrals: RAMON MCCAIN PA-C [Primary Care Provider] - Discharge Diet: As Tolerated Discharge Activity: Activity As Tolerated Home Care Assistance: None Needed Report the Following to Your Physician Immediately: Shortness of Breath, Increase in Pain, Fever over 101 Degrees
--- NOTE | 2019-03-08 09:03 | Operative Report ---
Operative Report DATE OF SURGERY: 03/08/19 PREOPERATIVE DIAGNOSIS: 1. History of rectal polyps. 2. History of Cheikh fu ndoplication. 3. Remote history of Stoddard's esophagus POSTOPERATIVE DIAGNOSIS: Same with. 1. Distal esophagitis. 2. Diffuse gastritis, moderate to severe. 3. Intact Cheikh fundoplication. 4. Scattered sigmoid and right-sided diverticulosis. 5. Multiple rectal polyps OPERATION: 1. Esophagogastroduodenoscopy. 2. Mucosal biopsies the distal esophagus and gastric antrum. 3. Total colonoscopy to cecum with photodocumentation. 4. Multiple cold forceps and snare polypectomy of rectal polyps. 5. Biopsy of cecum SURGEON: ESTHER SAHU ANESTHESIA: Moderate Sedation TISSUE REMOVED OR ALTERED: Multiple mucosa biopsies; rectal polyps COMPLICATIONS: None ESTIMATED BLOOD LOSS: Scant INTRAOPERATIVE FINDINGS: See below PROCEDURE: The patient was taken from the official waiting area to the endoscopy suite where conscious sedation was induced. Semi-recumbent position, monitoring devices attached. Surgical time out and plan were discussed. The flexible adult upper endoscope was advanced to the oropharynx, down the esophagus through the stomach into the first and second portion of the duodenum. The patient tolerated procedure well. The duodenum was unremarkable. The pyloric channel was unremarkable. The stomach was significant for diffuse moderate to severe streaking consistent with gastritis. A cold forceps biopsy of the mid antrum was obtained and sent for histologic analysis. The scope was retroflexed in the stomach visualizing the intact Cheikh fundoplication. Photos taken. There is no evidence of a tumor stricture bleeding or polyp. The scope was straightened out and brought back to the GE junction. The transition from esophagus to stomach was somewhat patulous. The Z line was irregular and 2 biopsies of the squamocolumnar mucosal junction were obtained. Bleeding was minimal. The rest of the esophagus was examined and there is no evidence of polyps erosions, or abnormal mucosa. There are no esophageal varices. The scope was withdrawn to the patient's oropharynx. She tolerated the procedure well Patient repositioned and equipment exchanged for colonoscopy. Placed in the left lateral decubitus position. A rectal exam was performed which revealed no significant anorectal pathology. The flexible adult colonoscope was advanced all the way through the anal rectal canal of the cecum. This was a good study on a reasonably well-prepped bowel. There was some mild to moderate amount of residual yellow-green particulate requiring irrigation and aspiration. The cecum was visualized. Transillumination anterior abdominal wall confirmed cecal intubation. Elevation of the likely the ileocecal valve, but the mucosa appeared somewhat normal. A biopsy was taken and sent as cecum. The scope was drawn throughout the colon checked the mucosa carefully. There were scattered diverticulosis of the right colon, and sigmoid colon. There was no evidence of tumor or stricture. In the rectum there were multiple small sessile polyps consistent with hyperplastic polyps. 5 were removed using a combination of the last so, and a cold snare. Bleeding was minimal. All rectal polyps of the mid and upper rectum submitted in one container. Scope was withdrawn the patient's anus. She tolerated procedure well. Surveillance guidelines, patient be appropriate for follow-up colonoscopy in 3 to 5 years.
[2019-03-08 10:12] VITALS: BP 118/60
== END 2019-03-08 09:40 | disposition home or self-care (01) ==
LOC: END 07:17
PROVIDERS: ATTEND Surgery
DX: Z12.11 Encounter for screening for malignant neoplasm of colon (principal); D12.8 Benign neoplasm of rectum; K57.30 Diverticulosis of large intestine without perforation or abscess without bleeding; Z86.010 Personal history of colon polyps; K22.70 Barrett's esophagus without dysplasia; K21.0 Gastro-esophageal reflux disease with esophagitis; K29.70 Gastritis, unspecified, without bleeding; Z80.0 Family history of malignant neoplasm of digestive organs; E66.9 Obesity, unspecified; I10 Essential (primary) hypertension; E78.00 Pure hypercholesterolemia, unspecified; Z79.899 Other long term (current) drug therapy; Z87.440 Personal history of urinary (tract) infections; Z68.37 Body mass index [BMI] 37.0-37.9, adult
CPT/HCPCS: 88305 ×2; J2250; J3010; 43239; 45380; J0171; J1200; J1610; J2310; J2405; J3490

== ENCOUNTER → 2020-05-07 | Outpatient (CLI) | payer MEDICARE, OTHER ==
--- NOTE | 2020-05-07 16:28 | RADIOLOGY REPORT (SQ) ---
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 TECHNIQUE: CT scanogram of the bilateral lower extremities is performed including pelvis to ankles. Measurements of femur, tibia, and entire lower extremities performed by the radiologist and saved to PACS. All CT scanners at this facility use dose modulation, iterative reconstruction, and/or weight based d osing when appropriate to reduce radiation dose to as low as reasonably achievable (ALARA). [facility]: Dose Right [facility]: CareDose [facility]: Dose Right [facility]: Teradose 4D [facility]: [employer] RADIATION DOSE: mGy. LIMITATIONS: None. FINDINGS: RIGHT: FEMUR: 42.9 cm. TIBIA: 34.3 cm. TOTAL RIGHT LOWER EXTREMITY LENGTH (INCLUDES THE KNEE JOINT SPACE): 78.1 cm. LEFT: FEMUR: 43.4 cm. TIBIA: 34.3 cm. TOTAL LEFT LOWER EXTREMITY LENGTH (INCLUDES THE KNEE JOINT SPACE): 78.5 cm. IMPRESSION: LEG LENGTH MEASUREMENTS DETAILED ABOVE. TECHNICAL DOCUMENTATION: JOB ID: [id number] Quality ID # [id number]: Final reports with documentation of one or more dose reduction techniques (e.g., Au tomated exposure control, adjustment of the mA and/or kV according to patient size, use of iterative reconstruction technique) 2010 [employer]- All Rights Reserved Reading location - IP/workstation name: [email or web address]
== END ==
LOC: RAD 13:15
PROVIDERS: ATTEND Podiatrist Foot & Ankle Surgery
DX: Q72.819 Congenital shortening of unspecified lower limb (principal)
CPT/HCPCS: 77073